=== PATIENT | male | born 1955 | race Asian ===

== ENCOUNTER 2019-05-29 14:21 | Inpatient (IN) | payer OTHER ==
[~2019-05-29] VITALS: Ht 179.1 cm; Wt 78.0 kg
[2019-05-29 15:06] VITALS: BP 113/71
[2019-05-29 16:16] LABS: BASOPHIL % 0.4 % (0-2); PLATELET COUNT 193 x10^3mcL (130-400); RED CELL DISTRIBUTION WIDTH 12.7 % (11.5-14.5)
[2019-05-29 16:34] LABS: MAGNESIUM 2.2 mg/dL (1.8-2.4); PHOSPHOROUS 2.3 mg/dL (2.5-4.9)
[2019-05-29] MEDS ORDERED: ATORVASTATIN CA10 M1 PO (16:56)
[2019-05-29 17:32] VITALS: BP 118/67
[2019-05-29 17:35] LABS: CALCIUM 8.6 mg/dL (8.5-10.1); CARBON DIOXIDE 26.4 mmol/L (21-32); CHLORIDE SERUM 109 mmol/L (98-107); CREATININE SERUM 0.9 mg/dL (0.7-1.3); GFR1 > 60 mL/min; GLUCOSE SERUM 102 mg/dL (74-106); POTASSIUM SERUM 4.3 mmol/L (3.5-5.1); SODIUM SERUM 142 mmol/L (136-145)
[2019-05-29 20:53] VITALS: BP 120/70
[2019-05-30 05:40] VITALS: BP 105/62
[2019-05-30 06:42] LABS: BASOPHIL % 0.5 % (0-2); PLATELET COUNT 186 x10^3mcL (130-400); RED CELL DISTRIBUTION WIDTH 12.9 % (11.5-14.5)
[2019-05-30 07:18] LABS: CALCIUM 7.9 mg/dL (8.5-10.1); CARBON DIOXIDE 25.1 mmol/L (21-32); CHLORIDE SERUM 109 mmol/L (98-107); CREATININE SERUM 0.9 mg/dL (0.7-1.3); GFR1 > 60 mL/min; GLUCOSE SERUM 111 mg/dL (74-106); MAGNESIUM 2.4 mg/dL (1.8-2.4); PHOSPHOROUS 1.9 mg/dL (2.5-4.9); POTASSIUM SERUM 3.9 mmol/L (3.5-5.1); SODIUM SERUM 143 mmol/L (136-145)
[2019-05-30 07:55] VITALS: BP 117/69
[2019-05-30 12:02] VITALS: BP 125/75
[2019-05-30 16:05] VITALS: BP 120/67
[2019-05-30 20:29] VITALS: BP 121/80
[2019-05-31 05:25] VITALS: BP 104/68
[2019-05-31 06:10] LABS: BASOPHIL % 0.5 % (0-2); PLATELET COUNT 182 x10^3mcL (130-400); RED CELL DISTRIBUTION WIDTH 13.1 % (11.5-14.5)
[2019-05-31 07:00] LABS: CALCIUM 8.1 mg/dL (8.5-10.1); CARBON DIOXIDE 26.8 mmol/L (21-32); CHLORIDE SERUM 107 mmol/L (98-107); CREATININE SERUM 0.9 mg/dL (0.7-1.3); GFR1 > 60 mL/min; GLUCOSE SERUM 99 mg/dL (74-106); MAGNESIUM 2.2 mg/dL (1.8-2.4); PHOSPHOROUS 2.9 mg/dL (2.5-4.9); POTASSIUM SERUM 4.1 mmol/L (3.5-5.1); SODIUM SERUM 142 mmol/L (136-145)
[2019-05-31 08:10] VITALS: BP 122/61
[2019-05-31 11:37] LABS: microscopic required? NO
[2019-05-31 11:51] LABS: urine erythrocyte NEGATIVE (NEGATIVE)
[2019-05-31 14:58] VITALS: BP 123/69
[2019-05-31 16:43] VITALS: BP 133/70
[2019-05-31 20:16] VITALS: BP 118/67
[2019-06-01 05:45] VITALS: BP 99/58
[2019-06-01 06:31] LABS: BASOPHIL % 0.2 % (0-2); PLATELET COUNT 179 x10^3mcL (130-400); RED CELL DISTRIBUTION WIDTH 12.2 % (11.5-14.5)
[2019-06-01 06:41] LABS: CALCIUM 7.9 mg/dL (8.5-10.1); CARBON DIOXIDE 28.9 mmol/L (21-32); CHLORIDE SERUM 107 mmol/L (98-107); CREATININE SERUM 0.9 mg/dL (0.7-1.3); GFR1 > 60 mL/min; GLUCOSE SERUM 137 mg/dL (74-106); MAGNESIUM 2.1 mg/dL (1.8-2.4); PHOSPHOROUS 2.3 mg/dL (2.5-4.9); SODIUM SERUM 144 mmol/L (136-145)
[2019-06-01 08:20] VITALS: BP 107/58
[2019-06-01 12:16] VITALS: BP 110/67
[2019-06-01 17:31] VITALS: BP 117/60
[2019-06-01 21:16] VITALS: BP 114/60
[2019-06-02 05:34] VITALS: BP 120/72
[2019-06-02 08:34] VITALS: BP 118/65
[2019-06-02] MEDS ORDERED: HYDROCODONE BIT1 T51 PO (10:33)
[2019-06-02] MEDS ORDERED: COLACE100 MG PO (10:34)
[2019-06-02 12:23] VITALS: BP 115/64
[2019-06-02 13:05] VITALS: BP 115/64
== END 2019-06-02 16:19 | disposition home health service (06) | DRG 482 ==
LOC: MU 14:21
PROVIDERS: Family Medicine; Neuromusculoskeletal Medicine, Sports Medicine; ADMIT Internal Medicine
PROC: 0QSB04Z Reposition Right Lower Femur with Internal Fixation Device, Open Approach (ICD-10-PCS; principal; 2019-05-31 12:00)
DX: S72.461A Displaced supracondylar fracture with intracondylar extension of lower end of right femur, initial encounter for closed fracture (principal); E78.5 Hyperlipidemia, unspecified; D72.829 Elevated white blood cell count, unspecified; W18.39XA Other fall on same level, initial encounter; M19.90 Unspecified osteoarthritis, unspecified site; Y93.89 Activity, other specified; Y92.018 Other place in single-family (private) house as the place of occurrence of the external cause; Y99.8 Other external cause status; Z23 Encounter for immunization
CPT/HCPCS: 83880; 90658; 97116-GP; 97530-GP; G0378; J0690; J1170; J1644; J1885; J2270; J2405; J3010; J3490; J7050; Q0092

== ENCOUNTER → 2019-07-26 | Outpatient (CLI) | payer OTHER ==
[~2019-07-26] MED LIST: ATORVASTATIN CA10 M1 PO; COLACE100 MG PO; HYDROCODONE BIT1 T51 PO
== END | disposition home or self-care (01) ==
LOC: RD 09:17
DX: S72.401A Unspecified fracture of lower end of right femur, initial encounter for closed fracture (principal); X58.XXXA Exposure to other specified factors, initial encounter; Y92.9 Unspecified place or not applicable

== ENCOUNTER → 2019-08-28 | Outpatient (CLI) | payer OTHER | END | disposition home or self-care (01) | LOC: RD 09:30 | DX: S72.401A Unspecified fracture of lower end of right femur, initial encounter for closed fracture (principal); X58.XXXA Exposure to other specified factors, initial encounter; Y92.9 Unspecified place or not applicable | CPT/HCPCS: Q0092 ==

== ENCOUNTER 2019-09-28 06:02 | Day surgery (SDC) | payer OTHER ==
[2019-09-25 17:17] LABS: BASOPHIL % 0.8 % (0-2); PLATELET COUNT 222 x10^3mcL (130-400)
[2019-09-25 17:23] LABS: microscopic required? NO
[2019-09-25 17:36] LABS: CALCIUM 8.4 mg/dL (8.5-10.1); CARBON DIOXIDE 27.9 mmol/L (21-32); CHLORIDE SERUM 105 mmol/L (98-107); CREATININE SERUM 0.9 mg/dL (0.7-1.3); GFR1 > 60 mL/min; GLUCOSE SERUM 90 mg/dL (74-106); POTASSIUM SERUM 4.3 mmol/L (3.5-5.1); SODIUM SERUM 141 mmol/L (136-145)
[2019-09-25 17:38] LABS: urine erythrocyte NEGATIVE (NEGATIVE)
[~2019-09-28] VITALS: Ht 180.3 cm; Wt 74.8 kg
[2019-09-28 06:16] VITALS: BP 151/86
[2019-09-28 11:51] VITALS: BP 129/80
== END 2019-09-28 11:40 | disposition home or self-care (01) ==
LOC: DS 06:02 → OR 07:30 → DS 11:40
PROVIDERS: ATTEND Neuromusculoskeletal Medicine, Sports Medicine
DX: Z47.2 Encounter for removal of internal fixation device (principal); Z11.59 Encounter for screening for other viral diseases
CPT/HCPCS: J2405; J2704; J3010; J3490; U0003-CS